=== PATIENT | female | born 1970 | race Caucasian/White ===

== ENCOUNTER 2016-12-31 05:40 | Day surgery (SDC) | payer SELFPAY ==
[~2016-12-31] VITALS: Ht 167.6 cm; Wt 75.0 kg
--- NOTE | ~2016-12-31 | O ---
[facility] [place] [address] OPERATIVE REPORT Name: WALI BRAMBILA Room #: [facility] M..#: [id number] Admission: 12/31/16 Attend Phys: Philip Garcia MD, Discharge: 12/31/16 Date of : 70 Report #: [id number] THIS REPORT FOR: //name// CC: LETICIA physician/PCP Philip Garcia DATE OF SERVICE: 12/31/2016 PREOPERATIVE DIAGNOSES: 1. Incisional ventral hernia. 2. Alcoholic cirrhosis. POSTOPERATIVE DIAGNOSES: 1. Multiple clustered incarcerated incisional ventral hernias. 2. Alcoholic cirrhosis. 3. Intraabdominal adhesions. PROCEDURES PERFORMED: 1. laparoscopic repair of multiple clustered incarcerated incisional ventral hernias with 1 piece of mesh. 2. Laparoscopic lysis of adhesions. SURGEON: Philip Garcia MD MERCHANDISING SPECIALIST: RENATE Barnett ANESTHESIA: General endotracheal anesthesia. ESTIMATED BLOOD LOSS: Minimal (less than 10 mL). COMPLICATIONS: None appreciated. SPECIMENS: None. INDICATIONS: The patient is a 46-year-old female with a history of severe alcoholism who presented in March 2016, with acute cholecystitis. Intraoperative findings of a significant mass in the right lobe of the liver shifting everything across the midline to the left upper quadrant was found and was suspicious for possible hepatocellular carcinoma. As such, the patient underwent placement of a percutaneous cholecystostomy tube and a thorough workup was undertaken showing findings of geographic fatty infiltration without discrete mass seen. As such, the patient was managed expectantly ultimately undergoing definitive management with laparoscopic cholecystectomy on 05/20/2016. Since that time, the patient has now had evidence of bulging through her mid abdominal periumbilical region at the site of her prior was identified. As such, indication was for laparoscopic repair today with [facility] [address] [place] [address] OPERATIVE REPORT Name: WALI BRAMBILA Room #: [facility] M.R.#: [id number] Admission: 12/31/16 Attend Phys: Philip Garcia MD, Discharge: 12/31/16 Date of : 70 Report #: [id number] intraoperative findings of incarcerated omentum contained within 4 punctate incisional ventral hernias clustered around the prior incision site. The patient did receive a repeat CT scan in mid September of this year, approximately 3 months ago, which showed findings concerning for enlargement of the right lobe of the liver with again fatty infiltration concerning for possible infiltrating neoplastic process and an intraoperative evaluation showed this to be similar and evaluation as to prior and if any further evaluation is necessary, it would warrant percutaneous biopsy. I saw no obvious cancerous lesions in the liver grossly today. PROCEDURE: After explaining the risks, benefits and alternatives of the procedure with the patient in detail in the preoperative holding area and obtaining written consent, the patient was brought to the operating room and placed supine on the operating room table. After conducting a thorough timeout procedure, verifying correct patient and procedure, the patient was given general endotracheal anesthesia. Once adequate anesthesia was obtained, SCDs were placed on the patient's bilateral lower extremities. She was given a preoperative dose of antibiotics in line with the SCIP protocol. The patient's abdomen was prepped and draped in standard surgical sterile fashion. 5 mL of 0.5% Marcaine with epinephrine were used to anesthetize the skin in the left upper quadrant and midclavicular line in a subcostal location. A #15 bladed scalpel was used to create a small skin gustavo at this location. A 5-mm Visiport was placed over 0 degree 5-mm laparoscope and was introduced through this incision site. Once intraabdominal placement was verified visually, the obturator for the trocar and laparoscope were both removed and the abdomen was insufflated to 15 mmHg using carbon dioxide gas. The laparoscope was changed to a 5-mm 30-degree laparoscope, which was reintroduced through this trocar. The entire abdomen was evaluated to ensure no injury upon entry and no other pathology. Specific attention was taken to evaluate the right lobe of the liver and again I saw no evidence of gross cancerous lesions. The mass effect from prior appeared similar. The patient's left lateral abdomen was devoid of adhesions and I was able to easily place a 12-mm port lateral to the umbilicus at the anterior axillary line in the left and additional 5-mm port in the left lower quadrant. Both were placed under direct vision after anesthetizing the skin at each location with 5 mL of 0.5% Marcaine with epinephrine, and I had created appropriately sized skin nicks using #15 bladed scalpel. The laparoscope was changed to the 12 mm port, I proceeded to carry out a laparoscopic lysis of adhesions using Harmonic scalpel to take down all omental adhesions as well as skeletonized posterior aspect of the anterior abdominal wall. This identified a discrete clustering 4 punctate hernia defects that spanned 4 cm in craniocaudal dimension as well as 4 cm transversely. As such, I selected [address] mesh with the Jemstep positioning system that measured 15.4 cm in diameter to allow for at least 5 cm overlap in all directions circumferentially. The mesh was rolled up, placed in the abdomen through the 12 mm port. The Richy-Nadia suture passer device was driven directly through the anterior abdominal wall through the [place] most portion of [address] [address] OPERATIVE REPORT Name: WALI BRAMBILA Room #: DEP [facility].#: [id number] Admission: 12/31/16 Attend Phys: Philip Garcia MD, Discharge: 12/31/16 Date of : 70 Report #: [id number] the hernia defects and the end eyelet of the balloon insufflation tubing for the echo positioning system was grasped, pulled up, cut off and passed off the field. The balloon insufflator was then attached to the tubing and I fully inflated the echo scaffolding and hemostat was used to tag this at the skin level to maintain insufflation. This held the entire mesh in close approximation with the posterior aspect of the anterior abdominal wall throughout. The insufflation pressure was now reduced to 8 mmHg, and I used the secure strap absorbable fixation device to placed tacks circumferentially around the periphery of the mesh 1 cm intervals as well as placing numerous tacks throughout the innermost portion of the mesh to hold the entire mesh in close approximation with the posterior aspect of the anterior abdominal wall. The hemostat was now elevated externally and the balloon tubing was cut with suture scissors. This allowed the echo scaffolding to fully deflate and this was removed through the 12 mm port under direct vision by placing the laparoscope in the left upper quadrant trocar. Hemostasis was assured. I now closed the 12 mm fascial incision using 0 PDS suture on a Richy-Nadia needle under direct vision. This was tied down under direct vision to ensure that I did not catch a loop of bowel or omentum in the repair. One final evaluation of the intra-abdominal domain showed no further evidence of pathology. Photodocumentation of the hernias as well as a mesh repair were taken and provided to the patient and the permanent medical record. The abdomen was fully desufflated. All ports were removed under direct vision. A 4-0 Monocryl was used in a standard subcuticular fashion for all skin incisions and Dermabond glue was applied to all skin wounds. At the end of the procedure, all instrument, needle and sponge counts were correct. The patient tolerated the procedure without incident, was awakened in the operating room, and transitioned to the recovery room in stable condition with no apparent complications. <ELECTRONICALLY SIGNED> By: Philip Garcia MD, FACS 01/01/17 0738 [id number] 1544 Philip Garcia MD, FACS /nt
--- NOTE | ~2016-12-31 | EKG ---
[address] [address] ELECTROCARDIOGRAM REPORT Name: WALI BRAMBILA Room #: [facility]#: [id number] Admission: 12/31/16 Attend Phys: Philip Garcia MD, Discharge: 12/31/16 Date of : 70 Report #: [id number] THIS REPORT FOR: //name// [facility] Test Date: 2016-12-31 Test Time: 10:26:38 Pat Name: WALI BRAMBILA Department: Room: 150 6 Gender: F [employer]il [employer] Teacher: GENARO : 1970 Requested By: Philip Garcia Order Number: [id number] MD: Jaleel Henry Measurements Intervals [place] Rate: 90 P: 66 RI: 142 QRS: 30 QRSD: 89 T: 2 QT: 424 QTc: 519 Interpretive Statements Sinus rhythm Borderline low voltage, extremity leads Prolonged QT interval Baseline wander in lead(s) V2 Compared to ECG 05/20/2016 09:15:14 Prolonged QT interval now present Electronically Signed On 01-02-2017 13:44:31 CDT by Jaleel Henry [email or web address] <ELECTRONICALLY SIGNED> By: Jaleel Henry MD, [facility] 01/02/17 1344 1026 1026 Jaleel Henry MD, [facility] /EPI
[~2016-12-31 05:40] MED LIST: ALEVE220 M1 PO; ALEVE220 MG PO; APAP500 PO; AUGMENTIN 875-1 EACH PO; DIPHENHIST50 MG PO; FLAGYL500 MG PO; HYDROCODON-ACE1 EAC8 PO; IBUPROFEN 200200 M1 PO; LEVAQUIN 500 M500 M1 PO; NEURONTIN 300300 M1 PO; NORCO 5-325 TA1 EACH PO; SERTRALINE HCL100 MG PO; TRAZODONE HCL50 MG PO; XIFAXAN550 MG PO; ZOFRAN ODT4 MG PO
[2016-12-31 10:21] LABS: HEMATOCRIT 30.3 % (37.0-47.0); HEMOGLOBIN 10.4 gm/dL (12.0-15.0)
[2016-12-31 11:44] VITALS: BP 117/71
[2016-12-31] MEDS ORDERED: NEURONTIN 300300 M1 PO (11:47)
[2016-12-31] MEDS ORDERED: PERCOCET 7.5-31 EACH PO (11:47)
[2016-12-31] MEDS ORDERED: SENOKOT-S1 TA1 PO (11:47)
[2016-12-31 11:54] VITALS: BP 117/71
== END 2016-12-31 13:34 | disposition home or self-care (01) ==
LOC: OR 05:40 → TBA 05:41 → OR 09:01
PROVIDERS: Surgery
DX: K43.6 Other and unspecified ventral hernia with obstruction, without gangrene (principal); K70.30 Alcoholic cirrhosis of liver without ascites; E11.9 Type 2 diabetes mellitus without complications; K66.0 Peritoneal adhesions (postprocedural) (postinfection); Z87.891 Personal history of nicotine dependence
CPT/HCPCS: 50010; 50101

== ENCOUNTER 2017-02-09 11:25 | Emergency (ER) | payer SELFPAY ==
[~2017-02-09] VITALS: Ht 165.1 cm; Wt 77.1 kg
[~2017-02-09 11:25] MED LIST changes: +PERCOCET 7.5-31 EACH PO; +SENOKOT-S1 TA1 PO
[2017-02-09 11:58] LABS: ABSOLUTE NEUTROPHILS 2.6 thou/uL (1.4-8.2); BASOPHILS 1.3 % (0.0-2.0); EOSINOPHILS 1.9 % (0.0-3.0); HEMATOCRIT 27.3 % (37.0-47.0); HEMOGLOBIN 9.4 gm/dL (12.0-15.0); LYMPHOCYTES 21.3 % (24.0-44.0); MANUAL DIFF NO; MCH 32.9 pg (26.0-34.0); MCHC 34.6 g/dL (28.0-37.0); MCV 95.1 fL (80.0-100.0); PLATELET COUNT 108 thou/uL (150-400); POLYS 69.5 % (36.0-66.0); RBC 2.87 mil/uL (4.20-5.00); RDW 15.4 % (10.5-14.5); WBC 3.8 thou/uL (4.0-11.0)
[2017-02-09 12:03] LABS: URINE BLOOD NEGATIVE (Negative); URINE COLOR YELLOW; URINE GLUCOSE-RANDOM* NEGATIVE (Negative); URINE KETONES NEGATIVE (Negative); URINE LEUKOCYTES-REFLEX 2+ (Negative); URINE PROTEIN (DIPSTICK) TRACE (Negative); URINE SPECIFIC GRAVITY 1.015 (1.003-1.035)
[2017-02-09 12:07] LABS: ANION GAP 6 mmol/L (7-16); BUN 10 mg/dL (7-18); CALCIUM 8.8 mg/dL (8.5-10.1); CHLORIDE 109 mmol/L (98-107); CO2 26 mmol/L (21-32); CREATININE 0.6 mg/dL (0.6-1.0); GLUCOSE 95 mg/dL (74-106); POTASSIUM 3.5 mmol/L (3.5-5.1); SODIUM 141 mmol/L (136-145)
[2017-02-09 12:11] LABS: ICTOTEST (BILI CONFIRMATORY) Negative (Negative); URINE BILIRUBIN NEGATIVE (Negative)
[2017-02-09 12:15] LABS: ALBUMIN 2.8 g/dL (3.4-5.0); ALKALINE PHOSPHATASE 124 U/L (46-116); SGOT 70 U/L (15-37); SGPT 30 U/L (30-65); TOTAL PROTEIN 6.9 g/dL (6.4-8.2); TROPONIN-I < 0.04 ng/mL (<0.04-0.07)
[2017-02-09 12:22] LABS: APTT 36.9 Seconds (24.5-32.8); INR 1.6; PROTIME 16.1 Seconds (9.3-11.4)
[2017-02-09 12:29] LABS: CASTS None Seen /LPF (None Seen); CRYSTALS None Seen /LPF (None Seen); SQUAMOUS >10 Many /LPF (0-3)
[2017-02-09 12:30] LABS: URINE WBC-REFLEX >25 Many /HPF (0-5)
[2017-02-09 12:31] LABS: URINE RBC None Seen /HPF (0-2)
[2017-02-09 14:43] LABS: CLARITY CLOUDY; COLOR AMBER; TOTAL VOLUME 60 mL
[2017-02-09 14:57] LABS: BF NUCLEATED CELLS 488; BF RBC 2014
[2017-02-09 15:50] LABS: BF MACROPHAGE 30; BF NEUTROPHILS 7; MANUAL DIFF YES
[2017-02-09] MEDS ORDERED: LASIX 20 MG TAB20 MG PO (16:09)
[2017-02-09] MEDS ORDERED: MACROBID 100 M100 M1 PO (16:10)
[2017-02-10 11:07] LABS: BODY FLUID AMYLASE 23 U/L (()); BODY FLUID GLUCOSE 95 mg/dL (()); BODY FLUID LDH 61 IU/L (()); BODY FLUID PROTEIN 2.4 g/dL (())
== END 2017-02-09 16:35 | disposition home or self-care (01) ==
LOC: ER 11:25
PROVIDERS: Emergency Medicine
DX: K74.60 Unspecified cirrhosis of liver (principal); R79.1 Abnormal coagulation profile; D61.818 Other pancytopenia; N39.0 Urinary tract infection, site not specified; F10.99 Alcohol use, unspecified with unspecified alcohol-induced disorder; Z87.442 Personal history of urinary calculi; Z98.890 Other specified postprocedural states; Z91.048 Other nonmedicinal substance allergy status

== ENCOUNTER 2017-02-16 15:37 | Emergency (ER) | payer OTHER ==
[~2017-02-16] VITALS: Ht 165.1 cm; Wt 84.2 kg
[~2017-02-16 15:37] MED LIST changes: +LASIX 20 MG TAB20 MG PO; +MACROBID 100 M100 M1 PO
[2017-02-16 18:26] LABS: ABSOLUTE NEUTROPHILS 2.5 thou/uL (1.4-8.2); BASOPHILS 0.5 % (0.0-2.0); EOSINOPHILS 2.7 % (0.0-3.0); HEMATOCRIT 27.7 % (37.0-47.0); HEMOGLOBIN 9.6 gm/dL (12.0-15.0); LYMPHOCYTES 19.4 % (24.0-44.0); MCH 33.1 pg (26.0-34.0); MCHC 34.5 g/dL (28.0-37.0); MCV 95.9 fL (80.0-100.0); MONOCYTES 8.2 % (1.0-8.0); PLATELET COUNT 106 thou/uL (150-400); POLYS 69.2 % (36.0-66.0); RBC 2.89 mil/uL (4.20-5.00); RDW 15.8 % (10.5-14.5); WBC 3.6 thou/uL (4.0-11.0)
[2017-02-16 18:27] LABS: MANUAL DIFF NO
[2017-02-16 18:38] LABS: CALCIUM 8.8 mg/dL (8.5-10.1); CREATININE 0.6 mg/dL (0.6-1.0); POTASSIUM 3.8 mmol/L (3.5-5.1)
[2017-02-16 18:41] LABS: APTT 34.2 Seconds (24.5-32.8); INR 1.4; PROTIME 14.8 Seconds (9.3-11.4)
[2017-02-16 18:48] LABS: ALBUMIN 2.8 g/dL (3.4-5.0); DIRECT BILIRUBIN 0.7 mg/dL (<0.1-0.3); TOTAL BILIRUBIN 2.1 mg/dL (<0.1-1.0)
[2017-02-16] MEDS ORDERED: HYSINGLA ER20 MG PO (19:45)
[2017-02-16] MEDS ORDERED: LASIX 20 MG TAB20 MG PO (19:45)
== END 2017-02-16 20:26 | disposition home or self-care (01) ==
LOC: ER 15:37
PROVIDERS: Emergency Medicine
DX: R18.8 Other ascites (principal); K74.60 Unspecified cirrhosis of liver; F10.99 Alcohol use, unspecified with unspecified alcohol-induced disorder; Z87.442 Personal history of urinary calculi; Z98.890 Other specified postprocedural states; Z90.49 Acquired absence of other specified parts of digestive tract; Z91.048 Other nonmedicinal substance allergy status

== ENCOUNTER → 2017-02-17 | Outpatient (CLI) | payer OTHER ==
[~2017-02-17] MED LIST changes: +COLACE100 MG PO; +HYDROCODONE-AP1 EAC6 PO; +HYSINGLA ER20 MG PO; +ROXICODONE5 M2 PO
== END | disposition home or self-care (01) ==
LOC: SPEC 10:28 → ULTRA 10:28
DX: R18.8 Other ascites (principal)

== ENCOUNTER 2017-02-28 11:46 | Emergency (ER) | payer OTHER ==
[~2017-02-28] VITALS: Ht 167.6 cm; Wt 88.0 kg
[~2017-02-28 11:46] MED LIST changes: -COLACE100 MG PO; -HYDROCODONE-AP1 EAC6 PO; -ROXICODONE5 M2 PO
[2017-02-28 12:48] LABS: HEMATOCRIT 25.3 % (37.0-47.0); HEMOGLOBIN 8.9 gm/dL (12.0-15.0); MCH 32.9 pg (26.0-34.0); MCHC 35.1 g/dL (28.0-37.0); MCV 93.6 fL (80.0-100.0); RBC 2.7 mil/uL (4.20-5.00); RDW 14.5 % (10.5-14.5); WBC 2.6 thou/uL (4.0-11.0)
[2017-02-28 13:13] LABS: INR 1.5; PROTIME 14.9 Seconds (9.3-11.4)
[2017-02-28 13:19] LABS: CALCIUM 8.4 mg/dL (8.5-10.1); CREATININE 0.5 mg/dL (0.6-1.0); POTASSIUM 3.6 mmol/L (3.5-5.1)
[2017-02-28] MEDS ORDERED: HYDROCODONE-AP1 EAC6 PO (15:00)
[2017-02-28] MEDS ORDERED: ROXICODONE5 M2 PO (15:15)
[2017-02-28] MEDS ORDERED: LASIX 20 MG TAB20 MG PO (15:22)
[2017-02-28] MEDS ORDERED: COLACE100 MG PO (15:22)
== END 2017-02-28 16:17 | disposition home or self-care (01) ==
LOC: ER 11:46
PROVIDERS: Nurse Practitioner
DX: R18.8 Other ascites (principal); K72.90 Hepatic failure, unspecified without coma; F10.99 Alcohol use, unspecified with unspecified alcohol-induced disorder; Z87.442 Personal history of urinary calculi; Z98.890 Other specified postprocedural states; Z90.49 Acquired absence of other specified parts of digestive tract; Z91.048 Other nonmedicinal substance allergy status

== ENCOUNTER 2017-03-21 11:20 | Emergency (ER) | payer OTHER ==
[~2017-03-21] VITALS: Ht 165.1 cm; Wt 78.0 kg
[~2017-03-21 11:20] MED LIST changes: +COLACE100 MG PO; +HYDROCODONE-AP1 EAC6 PO; +ROXICODONE5 M2 PO
[2017-03-21] MEDS ORDERED: LASIX 20 MG TAB20 MG PO ×2 (12:29→14:31)
[2017-03-21] MEDS ORDERED: NEURONTIN 300300 M1 PO (12:30)
[2017-03-21 13:26] LABS: HEMATOCRIT 29.1 % (37.0-47.0); HEMOGLOBIN 9.9 gm/dL (12.0-15.0); MCH 31.3 pg (26.0-34.0); MCHC 34.2 g/dL (28.0-37.0); MCV 91.7 fL (80.0-100.0); PLATELET COUNT 104 thou/uL (150-400); RBC 3.17 mil/uL (4.20-5.00); WBC 2.4 thou/uL (4.0-11.0)
[2017-03-21 13:27] LABS: MANUAL DIFF YES
[2017-03-21 13:36] LABS: CALCIUM 8.5 mg/dL (8.5-10.1); CREATININE 0.5 mg/dL (0.6-1.0); POTASSIUM 3.1 mmol/L (3.5-5.1)
[2017-03-21 13:40] LABS: APTT 35.2 Seconds (24.5-32.8); INR 1.7; PROTIME 17.6 Seconds (9.3-11.4)
[2017-03-21 14:01] LABS: ABSOLUTE NEUTROPHILS 1.6 thou/uL (1.4-8.2); NUCLEATED RBCS 1 /100WBC; PLATELET ESTIMATE NORMAL; TOTAL CELL COUNT 100
[2017-03-22] MEDS ORDERED: ULTRAM 50MG TAB50 MG PO (12:49)
== END 2017-03-21 14:35 | disposition home or self-care (01) ==
LOC: ER 11:20
PROVIDERS: Nurse Practitioner
DX: R18.8 Other ascites (principal); E87.6 Hypokalemia; R10.9 Unspecified abdominal pain; K74.60 Unspecified cirrhosis of liver; Z98.890 Other specified postprocedural states; Z87.442 Personal history of urinary calculi; Z90.49 Acquired absence of other specified parts of digestive tract; Z86.018 Personal history of other benign neoplasm; Z88.8 Allergy status to other drugs, medicaments and biological substances

== ENCOUNTER 2017-03-22 11:07 | Emergency (ER) | payer OTHER ==
[~2017-03-22] VITALS: Ht 165.1 cm; Wt 78.0 kg
[2017-03-22 12:18] LABS: URINE BLOOD NEGATIVE (Negative); URINE COLOR YELLOW; URINE GLUCOSE-RANDOM* NEGATIVE (Negative); URINE KETONES NEGATIVE (Negative); URINE LEUKOCYTES-REFLEX NEGATIVE (Negative); URINE PROTEIN (DIPSTICK) NEGATIVE (Negative); URINE SPECIFIC GRAVITY 1.015 (1.003-1.035)
[2017-03-22 12:20] LABS: ICTOTEST (BILI CONFIRMATORY) Positive (Negative); URINE BILIRUBIN 1+ (Negative)
[2017-03-22] MEDS ORDERED: ULTRAM 50MG TAB50 MG PO (12:49)
== END 2017-03-22 12:49 | disposition home or self-care (01) ==
LOC: ER 11:07
PROVIDERS: Emergency Medicine
DX: K74.69 Other cirrhosis of liver (principal); F10.99 Alcohol use, unspecified with unspecified alcohol-induced disorder; Z87.442 Personal history of urinary calculi; Z98.890 Other specified postprocedural states; Z91.048 Other nonmedicinal substance allergy status